=== PATIENT | male | born 1960 | race Caucasian/White ===

== ENCOUNTER 2022-06-29 11:09 | Emergency (ER) | payer OTHER ==
[2022-06-29 11:35] VITALS: BP 132/78; PULSE 65; RESP 19; TEMP 97.8; BMI 30.5
[2022-06-29] MEDS ORDERED: ACETAMINOPHEN 500 MG TABLET (FP) PO ONE (12:17)
[2022-06-29] MEDS ORDERED: LIDOCAINE 5% TOPICAL PATCH TP ONE (12:18)
[2022-06-29] MEDS ORDERED: ACETAMINOPHEN 325 MG TABLET (FP) ONE (12:23)
[2022-06-29] MEDS ORDERED: LIDOCAINE 5% TOPICAL PATCH ONE (12:23)
[2022-06-29] MEDS ORDERED: LIDOCAINE PATCH REMOVAL MC SCH (22:00)
== END 2022-06-29 13:23 | disposition home or self-care (01) ==
LOC: JERFT 11:09
DX: M54.50 Low back pain, unspecified (principal)
CPT/HCPCS: 99283-25